=== PATIENT | female | born 1955 | race Caucasian/White ===

== ENCOUNTER 2020-03-07 11:48 | Emergency (ER) | payer OTHER ==
[~2020-03-07] VITALS: Ht 157.5 cm; Wt 93.0 kg
[~2020-03-07 11:48] MED LIST: CELEXA10 MG PO; CRESTOR10 MG PO; KEFLEX500 MG PO; LEVOTHYROXIN0.112 M1 PO; NEXIUM40 MG PO; NORVASC5 MG PO; ZESTORETIC 20-1 EAC3 PO
[2020-03-07] MEDS ORDERED: OMEPRAZOLE40 MG PO (12:09)
[2020-03-07] MEDS ORDERED: DOXYCYCLINE 10100 MG PO (13:10)
[2020-03-07] MEDS ORDERED: MUPIROCIN15 GM TOP ×2 (13:10→13:34)
[2020-03-07 13:26] VITALS: BP 126/68
[2020-03-07] MEDS ORDERED: BACTRIM DS TAB1 EACH PO (13:33)
[2020-03-07] MEDS ORDERED: KEFLEX500 M1 PO (13:34)
== END 2020-03-07 13:27 | disposition home or self-care (01) ==
LOC: M.ERS 11:48
DX: S83.8X2A Sprain of other specified parts of left knee, initial encounter (principal); S00.31XA Abrasion of nose, initial encounter; L08.9 Local infection of the skin and subcutaneous tissue, unspecified; I10 Essential (primary) hypertension; E78.00 Pure hypercholesterolemia, unspecified; K21.9 Gastro-esophageal reflux disease without esophagitis; E03.9 Hypothyroidism, unspecified; Z88.5 Allergy status to narcotic agent; Z88.8 Allergy status to other drugs, medicaments and biological substances; Z88.1 Allergy status to other antibiotic agents; Z90.710 Acquired absence of both cervix and uterus; W18.39XA Other fall on same level, initial encounter; Y93.89 Activity, other specified; Y92.89 Other specified places as the place of occurrence of the external cause; Y99.8 Other external cause status